=== PATIENT | male | born 1970 | race Caucasian/White ===

== ENCOUNTER 2017-01-09 15:53 | Emergency (ER) | payer OTHER ==
[2017-01-09 18:38] LABS: BASOPHIL % 0.4 % (0-2); PLATELET COUNT 200 x10^3mcL (130-400); RED CELL DISTRIBUTION WIDTH 13.9 % (11.5-14.5)
[2017-01-09 18:43] LABS: CALCIUM 8.7 mg/dL (8.5-10.1); CARBON DIOXIDE 30.5 mmol/L (21-32); CHLORIDE SERUM 104 mmol/L (98-107); CREATININE SERUM 0.9 mg/dL (0.7-1.3); GFR1 > 60 mL/min; GLUCOSE SERUM 86 mg/dL (74-106); POTASSIUM SERUM 3.6 mmol/L (3.5-5.1); SODIUM SERUM 142 mmol/L (136-145)
[2017-01-09 18:48] LABS: ALBUMIN 4.1 g/dL (3.4-5.0); ALKALINE PHOSPHATASE 71 U/L (46-116); ALT/SGPT 134 U/L (16-63); AMYLASE 95 U/L (25-115); AST/SGOT 44 U/L (15-37); BILIRUBIN TOTAL 1.13 mg/dL (0.20-1.00); LIPASE 145 IU/L (73-393); TOTAL PROTEIN, SERUM 7.6 g/dL (6.4-8.2)
[2017-01-09 21:48] VITALS: BP 117/78
== END 2017-01-09 21:51 | disposition home or self-care (01) ==
LOC: ED 15:53
PROVIDERS: Emergency Medicine
DX: R10.9 Unspecified abdominal pain (principal)

== ENCOUNTER 2017-12-25 19:03 | Emergency (ER) | payer OTHER ==
[~2017-12-25] VITALS: Ht 170.2 cm; Wt 93.9 kg
[2017-12-25 19:06] VITALS: Ht 170.2 cm; Wt 93.9 kg
[2017-12-25 21:35] VITALS: BP 148/85
== END 2017-12-25 21:35 | disposition home or self-care (01) ==
LOC: ED 19:03
DX: G44.209 Tension-type headache, unspecified, not intractable (principal)
CPT/HCPCS: J1885